=== PATIENT | male | born 1940 | race Caucasian/White ===

== ENCOUNTER 2016-11-30 12:16 | Emergency (ER) | payer MEDICARE ==
[2016-11-30 13:43] LABS: BILIRUBIN NEGATIVE (NEGATIVE); BLOOD 3+ Ery/uL (NEGATIVE); COLOR YELLOW (YELLOW); GLUCOSE (U) NORMAL (NORMAL); KETONE (U) NEGATIVE (NEGATIVE); LEUKOCYTES 2+ Leu/uL (NEGATIVE); NITRITE NEGATIVE (NEGATIVE); PROTEIN 2+ mg/dL (NEGATIVE); SPECIFIC GRAVITY 1.025 (1.001-1.030); UROBILINOGEN 0.2 mg/dL (0.2-1.0)
[2016-11-30 13:44] LABS: CLARITY SLIGHTLY HAZY (CLEAR)
[2016-11-30 13:53] LABS: URINARY WBC 20-50
[2016-11-30 13:55] LABS: BACTERIA 4+
== END 2016-11-30 14:54 | disposition home or self-care (01) ==
LOC: FER 12:16
PROVIDERS: Internal Medicine
DX: T83.098A Other mechanical complication of other urinary catheter, initial encounter (principal); N39.0 Urinary tract infection, site not specified; R33.9 Retention of urine, unspecified; Z88.0 Allergy status to penicillin; Y84.6 Urinary catheterization as the cause of abnormal reaction of the patient, or of later complication, without mention of misadventure at the time of the procedure
CPT/HCPCS: 81001; 87076; 87088; 87186

== ENCOUNTER 2016-12-12 23:19 | Emergency (ER) | payer MEDICARE ==
[2016-12-13 00:17] LABS: BASOPHIL 0.1 % (0-2); HCT 38.2 % (42.0-52.0); HGB 12.6 g/dl (13.2-18.0); LYMPHOCYTE 15.6 % (15-48); MONOCYTE 8.7 % (0-12); MPV 8.9 fL (6.0-9.5); NEUTROPHIL 74.6 % (41-80); PLT 317 K/uL (150-400); RDW 13.7 % (11.5-14.0); WBC 10.1 K/uL (4.0-10.5)
[2016-12-13 00:20] LABS: BILIRUBIN NEGATIVE (NEGATIVE); BLOOD 3+ Ery/uL (NEGATIVE); CLARITY CLEAR (CLEAR); COLOR RED (YELLOW); GLUCOSE (U) NORMAL (NORMAL); KETONE (U) NEGATIVE (NEGATIVE); LEUKOCYTES 1+ Leu/uL (NEGATIVE); NITRITE NEGATIVE (NEGATIVE); PROTEIN 2+ mg/dL (NEGATIVE); UROBILINOGEN 0.2 mg/dL (0.2-1.0); pH 5.5 (5.0-9.0)
[2016-12-13 00:28] LABS: BACTERIA TRACE; SQUAMOUS EPITHELIAL CELLS RARE; URINARY RBC 20-50
[2016-12-13 00:41] LABS: CREATININE 1.3 mg/dL (0.7-1.2); POTASSIUM 4.4 mmol/L (3.5-5.1)
== END 2016-12-13 01:58 | disposition home or self-care (01) ==
LOC: FER 23:19
PROVIDERS: Emergency Medicine
DX: I13.10 Hypertensive heart and chronic kidney disease without heart failure, with stage 1 through stage 4 chronic kidney disease, or unspecified chronic kidney disease (principal); N18.9 Chronic kidney disease, unspecified; G30.9 Alzheimer's disease, unspecified; F02.80 Dementia in other diseases classified elsewhere, unspecified severity, without behavioral disturbance, psychotic disturbance, mood disturbance, and anxiety; Z88.0 Allergy status to penicillin; Z79.899 Other long term (current) drug therapy
CPT/HCPCS: 36415; 80048; 81001; 83605; 85025; 87040; 87077; 87088; 87186